=== PATIENT | female | born 1995 | race Caucasian/White ===

== ENCOUNTER 2018-02-05 20:35 | Emergency (ER) | payer BC, OTHER ==
[2018-02-05] MEDS ORDERED: Dexamethasone 4 MG TAB ONE (21:38)
== END 2018-02-05 21:25 | disposition home or self-care (01) ==
LOC: ERS 20:35
DX: J45.909 Unspecified asthma, uncomplicated (principal); F41.9 Anxiety disorder, unspecified
CPT/HCPCS: 99284; J8540

== ENCOUNTER 2018-04-22 20:23 | Day surgery (SDC) | payer BC, OTHER ==
[2018-04-22 20:53] VITALS: BMI 30.7
--- NOTE | 2018-04-22 21:12 | PDOC.LDHP ---
Labor and Delivery H&P Chief complaint: other (s/p fall onto bathtub edge wasking her baby. Patient of Dr villegas. Fall at 1930) HPI: Patient has handwritten H&P in chart: 22 [id number] at 25-6 weeks s/p mild fall onto bathtub edge at 1930. She hit the top of stomach/fundus. No LOF, no VB, good FM, no fever. No LOC. Review of systems: complete ROS done and negative as per HPI Current gestational age (weeks): 25 Due date: 08/02/18 Dating criteria: last menstrual period Grav: 2 Para: 1 OB History Details: x1 Current complications: none Abnormal US findings: No Current medications: pre- vitamins, other (zoloft 50mg Qd for depression; albuterol for well controlled asthma) Previous surgical history: none Allergies/Adverse Reactions: Allergies Allergy/AdvReac Type Severity Reaction Status Date / Time acetaminophen [From Tylenol] Allergy Nausea Verified 02/08/17 22:20 penicillin V Allergy Verified 02/08/17 22:20 Sulfa (Sulfonamide Allergy Rash Verified 02/08/17 22:20 Antibiotics) Social history: none - Physical Exam Vital signs reviewed and normal: yes General: NAD Lungs: CTAB Abdomen: gravid FHT: category 1 ("reactive" for 25 weeks) [place] contractions every: no contractions - Assessment 25 weeks s/p mild fall. Blood type is A+ - Plan Plan: observation in L&D (No current evidence abruption, PTL or ROM. We will obs for 4 hours per ACOG (4 hurs from event). Q&A done with her)
== END 2018-04-22 23:10 | disposition home or self-care (01) ==
LOC: L&D/OP 20:23
PROVIDERS: ATTEND Student in an Organized Health Care Education/Training Program
DX: O9A.212 Injury, poisoning and certain other consequences of external causes complicating pregnancy, second trimester (principal); O99.512 Diseases of the respiratory system complicating pregnancy, second trimester; J45.909 Unspecified asthma, uncomplicated; O99.342 Other mental disorders complicating pregnancy, second trimester; F32.9 Major depressive disorder, single episode, unspecified; Z3A.25 25 weeks gestation of pregnancy; Z79.899 Other long term (current) drug therapy; Z88.0 Allergy status to penicillin; Z88.2 Allergy status to sulfonamides; Z88.8 Allergy status to other drugs, medicaments and biological substances; W01.198A Fall on same level from slipping, tripping and stumbling with subsequent striking against other object, initial encounter; Y92.002 Bathroom of unspecified non-institutional (private) residence as the place of occurrence of the external cause
CPT/HCPCS: 99282

== ENCOUNTER 2018-06-23 17:46 | Day surgery (SDC) | payer BC, OTHER ==
[2018-06-23 18:41] VITALS: BMI 31.3
--- NOTE | 2018-06-23 20:44 | PRG ---
DATE OF SERVICE: 06/23/2018 OB ER ENCOUNTER PRIMARY EVENT LIGHTING SPECIALIST: Miquel Khalil DO CHIEF COMPLAINT: Abdominal pain. HISTORY OF PRESENT ILLNESS: The patient is a 22-year-old, G2, P1 female with an intrauterine pregnan cy at 34 weeks and 2 days, who is presenting to labor and delivery after having experienced a strong abdominal pain that she reports shrunk her belly and was present for about 10 minutes and then disapp eared. The patient has a history of delivery at 33 weeks and came worried that she may be go ing into labor. The patient denies any recurrent abdominal pains. She denies any leakage of fluid o r vaginal bleeding. She denies any fall or trauma. The patient denies headache, chest pain, shortne ss of breath, nausea, vomiting, diarrhea, constipation. She denies any skin rashes, hip problems, kn ee problems, or muscle weakness. The patient does report she was recently diagnosed with pubic bone dysfunction and is getting physical therapy. PAST MEDICAL HISTORY: Anxiety, asthma. PAST SURGICAL HISTORY: Negative. ALLERGIES: PENICILLIN and SULFA. MEDICATIONS: Sertraline 100 mg a day and vitamins. SOCIAL HISTORY: Denies drug, alcohol, or tobacco use. OBSTETRIC LABORATORY: Blood type is A positive. One-hour glucose test was 135. Three-hour test was within normal limits. OB labs were otherwise unavailable. REVIEW OF SYSTEMS: Per HPI. PHYSICAL EXAMINATION: VITAL SIGNS: Blood pressure 104/55, heart rate of 120, respiratory rate of 20, satting 96% on room a ir, temperature 98.9. The patient reports that she has a baseline pulse rate. GENERAL: She appears to be in no acute distress. She is alert, oriented, cooperative, and pleasant to interact with. HEENT: Normocephalic, atraumatic. LUNGS: Clear to auscultation bilaterally. HEART: Regular rate and rhythm. ABDOMEN: Soft, gravid, nontender. EXTREMITIES: Nontender, nonedematous. CERVICAL EXAM: Closed, thick, and high per nursing staff. heart tracing performed for abdominal pain in . Baseline is noted to be in the 130s w ith moderate long-term variability, positive 15/15 accelerations. The patient does have some irritab ility on the monitor, but she does not feel it. ASSESSMENT AND PLAN: The patient is a 22-year-old, G2, P1 female with an intrauterine at 3 4 weeks and 2 days presenting to Labor and Delivery with false labor. The isolated contraction that the patient appeared to have experience has not occurred again. The patient has been given reassuran ce and has been just discharged to home. She has an appointment next week with her primary OB. Fetu s has category 1 tracing and a reactive NST.
== END 2018-06-23 19:30 | disposition home or self-care (01) ==
LOC: L&D/OP 17:46
PROVIDERS: ATTEND Student in an Organized Health Care Education/Training Program
DX: O47.03 False labor before 37 completed weeks of gestation, third trimester (principal); O99.513 Diseases of the respiratory system complicating pregnancy, third trimester; O99.343 Other mental disorders complicating pregnancy, third trimester; J45.909 Unspecified asthma, uncomplicated; F41.9 Anxiety disorder, unspecified; Z88.0 Allergy status to penicillin; Z3A.34 34 weeks gestation of pregnancy; Z88.2 Allergy status to sulfonamides

== ENCOUNTER 2018-07-13 21:16 | Inpatient (IN) | payer BC, OTHER ==
[2018-07-13] MEDS ORDERED: Ibuprofen 800 MG TAB PO PRN (21:59)
[2018-07-13] MEDS ORDERED: HYDROcodone/Acetaminophen 5/325 mg Tablet PO PRN ×2 (21:59)
[2018-07-13] MEDS ORDERED: NS / Oxytocin 40 units/1000ml 1,000 ML IV PRN (21:59)
[2018-07-13] MEDS ORDERED: Lidocaine 1% (PF) 30 ML VIAL SC PRN (21:59)
[2018-07-13] MEDS ORDERED: CEFAZOLIN 1 GM in Sodium Chloride 0.9% 100 ML IVPB SCH (22:00)
[2018-07-13] MEDS ORDERED: Ondansetron HCl/PF 4 MG/2 ML Vial IVP PRN (22:05)
[2018-07-13] MEDS ORDERED: Promethazine HCl 25 MG/ML VIAL IM PRN (22:05)
[2018-07-13] MEDS ORDERED: Acetaminophen 500 MG TAB PO PRN (22:05)
[2018-07-13] MEDS ORDERED: Meperidine HCl/PF 25 MG/ML VIAL IM/IV PRN (22:05)
[2018-07-13] MEDS ORDERED: Butorphanol Tartrate 1 MG/ML VIAL SLOW IVP PRN (22:05)
[2018-07-13 22:07] VITALS: BMI 30.8
[2018-07-13] MEDS ORDERED: CEFAZOLIN/Water 2 GM/20 ML SYRINGE ONE (22:12)
[2018-07-13] MEDS ORDERED: Lactated Ringer's 1,000 ML IV SCH ×2 (22:15)
--- NOTE | 2018-07-13 22:19 | PDOC.LDHP ---
Labor and Delivery H&P Chief complaint: contractions HPI: 22 yo WF c/o regular UCs since this PM. Current gestational age (weeks): 37 Due date: 08/02/18 Dating criteria: last menstrual period Grav: 2 Para: 1 OB History Details: PNC with Dr. Cadena w/o complications. Abnormal US findings: No Past Medical History: asthma Current medications: pre- vitamins, other (inhaler) Previous surgical history: none Allergies/Adverse Reactions: Allergies Allergy/AdvReac Type Severity Reaction Status Date / Time acetaminophen [From Tylenol] Allergy Nausea Verified 06/23/18 18:30 penicillin V Allergy Verified 06/23/18 18:30 Sulfa (Sulfonamide Allergy Rash Verified 06/23/18 18:30 Antibiotics) Social history: none - Physical Exam Abnormal vital signs: T= 100.3 General: breathing through contractions Lungs: nonlabored breathing Abdomen: gravid Extremeties: trace edema FHT: variable decelerations [place] contractions every: q 3-5 mins - Vaginal Exam cm dilated: 5 Effacement: 90% - OB Labs Blood type: A RH: positive Antibody Screen: negative GBS: positive - Assessment L&D Assessment: term patient in labor - Plan Plan: admit to L&D, other (Start IV ABX for suspected chorioamnionitis, observe closely)
[2018-07-13] MEDS ORDERED: DISCONTINUE ALL PREVIOUS NARCOTICS FS SCH (22:30)
[2018-07-13] MEDS ORDERED: Gentamicin Sulfate 80 MG in Premix Bag 1 BAG IVPB SCH (22:30)
[2018-07-13] MEDS ORDERED: Bupivacaine 0.5% 20 ML, fentaNYL Citrate/PF 400 MCG in Sodium Chloride 0.9% 72 ML EPIDURAL SCH (22:30)
[2018-07-13 22:49] LABS: Hemoglobin 9.7 g/dL (12.0-16.0); Mean Corpuscular HGB CONC 30.3 g/dL (32.0-36.0); Mean Corpuscular Hemoglobin 18.9 pg (27.0-31.0); Mean Corpuscular Volume 62.4 fL (78.0-98.0); Mean Platelet Volume 6.8 fL (7.4-10.4); Platelet Count 255 thou/uL (130-400); RBC Distribution Width 18.2 % (11.5-14.5); Red Blood Cell (RBC) Count 5.14 mill/uL (4.20-5.40); White Blood Cell (WBC) Count 18.3 thou/uL (4.8-10.8)
--- NOTE | 2018-07-13 23:06 | PDOC.EVN ---
Event Note - Event Note Event Note: Rapid progress after AROM. of viable female Apgars 9/9 over intact perineum. Placenta intact Juanito. NICU team present at delivery. Dr. Cadena here. QBL= [id number]. To revcover in L&D.
[2018-07-13] MEDS ORDERED: Preparation H Ointment 28 GM TUBE PR PRN (23:09)
[2018-07-13] MEDS ORDERED: diphenhydrAMINE 25 MG CAP PO PRN (23:09)
[2018-07-13] MEDS ORDERED: Zolpidem Tartrate 5 MG TAB PO PRN (23:09)
[2018-07-13] MEDS ORDERED: Measles/Mumps/Rubella 10 MCG/0.5 ML VIAL SC ONE (23:09)
[2018-07-13] MEDS ORDERED: Misoprostol 200 MCG TAB VAG PRN (23:09)
[2018-07-13] MEDS ORDERED: Bisacodyl 10 MG SUPP PR PRN (23:09)
[2018-07-13] MEDS ORDERED: Milk Of Magnesia 30 ML UDCUP PO PRN (23:09)
[2018-07-13] MEDS ORDERED: Lanolin Ointment 7 GM TUBE TOP PRN (23:09)
[2018-07-13] MEDS ORDERED: Benzocaine/Menthol 20-0.5% 60 ML CAN TOP PRN (23:09)
[2018-07-13] MEDS ORDERED: Adacel (T-DAP) 0.5 ML VIAL IM ONE (23:09)
[2018-07-13] MEDS ORDERED: NS / Oxytocin 40 units/1000ml 1,000 ML IV SCH (23:15)
[2018-07-13 23:28] LABS: Syphilis Antibody Nonreactive (Nonreactive); Syphilis Antibody Index 0.04 S/CO (<1.00 Non-Reactive)
[2018-07-14 00:19] LABS: HBSAg Index 2.96 S/CO (0-0.99); Hep B Surf Ag Reactive S/CO (NonReactive)
[2018-07-14] MEDS: Ibuprofen 600 MG TAB PO PRN ×3 (05:11→21:17)
[2018-07-14] MEDS ORDERED: Gentamicin Sulfate 80 MG in Premix Bag 1 BAG IVPB SCH (06:00)
[2018-07-14 06:08] LABS: Hemoglobin 8.8 g/dL (12.0-16.0); Mean Corpuscular HGB CONC 30.2 g/dL (32.0-36.0); Mean Corpuscular Hemoglobin 18.9 pg (27.0-31.0); Mean Corpuscular Volume 62.5 fL (78.0-98.0); Mean Platelet Volume 7.3 fL (7.4-10.4); Platelet Count 227 thou/uL (130-400); RBC Distribution Width 18.3 % (11.5-14.5); Red Blood Cell (RBC) Count 4.65 mill/uL (4.20-5.40); White Blood Cell (WBC) Count 21.6 thou/uL (4.8-10.8)
--- NOTE | 2018-07-14 07:55 | PDOC.PP ---
Post Progress Note Post Day #: 1 PO intake tolerated: yes Flatus: yes Ambulation: yes Vital Signs (12 hours) Temp Pulse Resp BP BP 07/14/18 05:15 98.2 F 82 18 113/63 07/14/18 04:20 98.7 F 103 H 20 114/59 L 07/14/18 03:25 98.1 F 95 20 105/65 07/13/18 21:59 100.3 F H 120 H 18 102/54 L 07/13/18 21:46 100.3 F H 120 H 18 102/54 L Weight Weight 197 lb - Physical Examination General: NAD Cardiovascular: RRR Respiratory: non-labored breathing Abdominal: no distention Fundus firm & at: umb Psychiatric: normal affect Result Diagrams: 07/14/18 05:36 Additional Labs: Post Labs Blood Type A POSITIVE 07/13/18 22:39 Hep Bs Antigen Reactive S/CO (NonReactive) H 07/13/18 22:39 - Assessment/Plan PPD1 s/p TSVD Doing well, lochia wnl Chronic iron def anemia, cont iron supp and PNV, no sx anemia Hx anxiety, cont zoloft Rh pos RImm Cont PP care, home tomorrow.
[2018-07-14] MEDS: Prenatal Vitamin 1 TAB PO SCH (09:27)
[2018-07-14] MEDS: Docusate Calcium (SURFAK) 240 MG CAP PO SCH ×2 (09:27→21:17)
[2018-07-14] MEDS: Ferrous Sulfate 325 MG TAB PO SCH ×2 (09:28→18:01)
[2018-07-15] MEDS: Ibuprofen 600 MG TAB PO PRN ×2 (02:56→09:49)
[2018-07-15 06:15] LABS: Hep B Surface AG-Rflx Sendout Negative (Negative)
[2018-07-15 08:14] VITALS: BP 101/58; TEMP 97.8
[2018-07-15] MEDS: Prenatal Vitamin 1 TAB PO SCH (09:48)
[2018-07-15] MEDS: Ferrous Sulfate 325 MG TAB PO SCH (09:49)
[2018-07-15] MEDS: Docusate Calcium (SURFAK) 240 MG CAP PO SCH (09:49)
== END 2018-07-15 16:25 | disposition home or self-care (01) | DRG 775 ==
LOC: L&D/OP 21:16 → L&D 22:00 → 3SW 07-14 03:24
PROVIDERS: ADMIT Student in an Organized Health Care Education/Training Program; ATTEND Student in an Organized Health Care Education/Training Program
PROC: 10E0XZZ Delivery of Products of Conception, External Approach (ICD-10-PCS; principal; 2018-07-13)
PROC: 10907ZC Drainage of Amniotic Fluid, Therapeutic from Products of Conception, Via Natural or Artificial Opening (ICD-10-PCS; 2018-07-13)
DX: O41.1230 Chorioamnionitis, third trimester, not applicable or unspecified (principal); O99.824 Streptococcus B carrier state complicating childbirth; Z3A.37 37 weeks gestation of pregnancy; Z37.0 Single live birth; O62.3 Precipitate labor; O77.0 Labor and delivery complicated by meconium in amniotic fluid; O76 Abnormality in fetal heart rate and rhythm complicating labor and delivery
CPT/HCPCS: 36415; 85027; 86780; 86850; 86900; 86901; 87340; 99285; J0690; J1580; J2001; J3010; J3490; J7050